=== PATIENT | female | born 1990 | race Caucasian/White ===

== ENCOUNTER → 2020-03-02 | Outpatient (CLI) | payer OTHER, MEDICAID ==
[2020-03-02 14:52] LABS: BASO % 0.6 % (0.0-1.0); EOS # 0.1 10^3/uL (0.0-0.5); EOS % 1.9 % (0.0-3.0); HEMATOCRIT 34.1 % (36.0-47.0); HEMOGLOBIN 11.5 g/dl (12.0-15.5); LYMPH # 2.2 10^3/uL (1.5-5.0); LYMPH % 41.7 % (24.0-44.0); MEAN CORPUSCULAR HEMOGLOBIN 29.6 pg (27.0-33.0); MEAN CORPUSCULAR HGB CONC 33.7 g/dl (32.0-36.5); MEAN CORPUSCULAR VOLUME 87.9 fl (80.0-96.0); MONO # 0.5 10^3/uL (0.0-0.8); MONO % 9.4 % (0.0-5.0); NEUTROPHILS # 2.4 10^3/uL (1.5-8.5); NEUTROPHILS % 46.2 % (36.0-66.0); PLATELET COUNT, AUTOMATED 247 10^3/uL (150-450); RED BLOOD COUNT 3.88 10^6/uL (4.00-5.40); WHITE BLOOD COUNT 5.2 10^3/uL (4.0-10.0)
[2020-03-02 14:57] LABS: APPEARANCE, URINE HAZY (CLEAR); BACTERIA, URINE AUTO NEGATIVE (NEGATIVE); BILIRUBIN, URINE AUTO NEGATIVE (NEGATIVE); BLOOD, URINE BLOOD NEGATIVE (NEGATIVE); COLOR, URINE YELLOW (YELLOW); GLUCOSE, URINE (UA) AUTO NEGATIVE (NEGATIVE); KETONE, URINE AUTO NEGATIVE (NEGATIVE); LEUKOCYTE ESTERASE, URINE AUTO NEGATIVE (NEGATIVE); MUCUS, URINE SMALL (NEGATIVE); NITRITE, URINE AUTO NEGATIVE (NEGATIVE); PROTEIN, URINE AUTO NEGATIVE (NEGATIVE); RBC, URINE AUTO 1 /HPF (0-3); SPECIFIC GRAVITY URINE AUTO 1.021 (1.002-1.035); SQUAMOUS EPITHELIAL CELL UR AU 3 /HPF (0-6); UROBILINOGEN, URINE AUTO 0.2 mg/dL (0.0-2.0); WBC, URINE AUTO 2 /HPF (0-3)
[2020-03-02 15:55] LABS: ALBUMIN 4.1 GM/DL (3.2-5.2); ALT/SGPT 250 U/L (12-78); BILIRUBIN,TOTAL 0.4 MG/DL (0.2-1.0); BLOOD UREA NITROGEN 20 MG/DL (7-18); CALCIUM LEVEL 9.6 MG/DL (8.5-10.1); CARBON DIOXIDE LEVEL 33 MEQ/L (21-32); CHLORIDE LEVEL 103 MEQ/L (98-107); CREATININE FOR GFR 0.69 MG/DL (0.55-1.30); GLOMERULAR FILTRATION RATE > 60.0 (>60); GLUCOSE, FASTING 95 MG/DL (70-100); HEPATITIS B SURFACE ANTIBODY POSITIVE (POSITIVE); HEPATITIS B SURFACE ANTIGEN NEGATIVE (NEGATIVE); POTASSIUM SERUM 4.1 MEQ/L (3.5-5.1); SODIUM LEVEL 138 MEQ/L (136-145); TOTAL PROTEIN 8.4 GM/DL (6.4-8.2)
[2020-03-05 03:07] LABS: HEPATITIS A IgG TOTAL Positive (Negative); HEPATITIS C QUANTITATION 43960 IU/mL (.); HEPATITIS C VIRUS GENOTYPE 3 (.)
== END ==
LOC: M LAB 14:08
PROVIDERS: ATTEND Physician Assistant Medical
DX: Z02.2 Encounter for examination for admission to residential institution (principal)

== ENCOUNTER 2020-03-15 13:15 | Outpatient (RCR) | payer OTHER | END 2020-03-16 | LOC: M PT 13:15 | PROVIDERS: ATTEND Physician Assistant Medical | DX: M25.572 Pain in left ankle and joints of left foot (principal) ==

== ENCOUNTER → 2020-03-23 | Outpatient (CLI) | payer OTHER ==
[2020-03-23 16:56] LABS: FREE THYROXINE INDEX 2.8 % (1.3-4.8); T UPTAKE 27 % (30-39); THYROXINE (T4) 10.2 UG/DL (4.5-12.0)
== END ==
LOC: M PLALAB 13:14
PROVIDERS: ATTEND Physician Assistant Medical
DX: R53.83 Other fatigue (principal)

== ENCOUNTER 2020-04-12 13:10 | Outpatient (RCR) | payer OTHER | END 2020-04-16 | LOC: M PT 13:10 | PROVIDERS: ATTEND Physician Assistant Medical | DX: Z51.89 Encounter for other specified aftercare (principal); M25.572 Pain in left ankle and joints of left foot ==

== ENCOUNTER 2020-04-29 11:15 | Outpatient (RCR) | payer OTHER | END 2020-05-16 | LOC: M PT 11:15 | PROVIDERS: ATTEND Physician Assistant Medical | DX: Z47.89 Encounter for other orthopedic aftercare (principal); M25.572 Pain in left ankle and joints of left foot ==

== ENCOUNTER 2020-05-19 13:45 | Outpatient (RCR) | payer OTHER ==
[2020-05-30] MEDS ORDERED: NICO2LOZ29 MT (13:36)
[2020-05-30] MEDS ORDERED: CLIN150C14 PO (13:36)
[2020-05-30] MEDS ORDERED: CETI10CA13 PO (13:36)
[2020-05-30] MEDS ORDERED: FLON1SPR NARES (13:36)
[2020-05-30] MEDS ORDERED: MULTTAB24 PO (13:36)
[2020-05-30] MEDS ORDERED: CLON-412 PO (13:36)
[2020-05-30] MEDS ORDERED: ZOLO50TA PO (13:36)
[2020-05-30] MEDS ORDERED: SUBO8MIS SL (13:36)
[2020-05-30] MEDS ORDERED: ATOM60CA7 PO (13:36)
== END 2020-06-16 ==
LOC: M PT 13:45
PROVIDERS: ATTEND Physician Assistant Medical
DX: M25.572 Pain in left ankle and joints of left foot (principal)

== ENCOUNTER 2020-06-03 09:26 | Day surgery (SDC) | payer OTHER ==
[~2020-06-03] VITALS: Ht 154.9 cm; Wt 55.8 kg
[~2020-06-03 09:26] MED LIST: ATOM60CA7 PO; CETI10CA13 PO; CLIN150C14 PO; CLON-412 PO; FLON1SPR NARES; LR 1,000 ML IV ONE; MULTTAB24 PO; NICO2LOZ29 MT; SUBO8MIS SL; ZOLO50TA PO
[2020-06-03] MEDS ORDERED: LIDOCAINE W/EPINEPHRINE 1% 20ML VIAL As Ordered ONE (11:30)
[2020-06-03] MEDS ORDERED: ONDANSETRON 4MG/2ML VIAL As Ordered ONE (12:05)
[2020-06-03] MEDS ORDERED: ROCURONIUM BROMIDE 50 MG/5 ML VIAL As Ordered ONE (12:05)
[2020-06-03] MEDS ORDERED: propofoL 200 MG/20 ML VIAL As Ordered ONE (12:05)
[2020-06-03] MEDS ORDERED: MIDAZOLAM INJ 2MG/2ML VIAL (J2250 PER 1MG) As Ordered ONE (12:05)
[2020-06-03] MEDS ORDERED: dexameTHASONE 4 MG/ML 1ML VIAL (J1100 PER 1MG) As Ordered ONE (12:05)
[2020-06-03] MEDS ORDERED: LIDOCAINE 2% 100MG/5ML SDV (FOR ANES.) As Ordered ONE (12:05)
[2020-06-03] MEDS ORDERED: fentaNYL 250 MCG/5 ML INJECTION (J3010) As Ordered ONE (12:05)
[2020-06-03] MEDS ORDERED: ACETAMINOPHEN 1000MG 100ML IV BTL (OFIRMEV) (J0131 PER 10MG) As Ordered ONE (12:15)
[2020-06-03] MEDS ORDERED: SUGAMMADEX SODIUM 500 MG/5 ML VIAL (BRIDION) As Ordered ONE (12:35)
[2020-06-03] MEDS ORDERED: LR 1,000 ML IV SCH (13:15)
[2020-06-03] MEDS ORDERED: oxyCODONE 5MG TAB PO PRN (13:15)
[2020-06-03] MEDS ORDERED: fentaNYL 100 MCG/2 ML INJECTION (J3010) IV PRN (13:15)
[2020-06-03] MEDS ORDERED: ONDANSETRON 4MG/2ML VIAL IV PRN (13:15)
[2020-06-03 13:46] VITALS: BP 114/76
--- NOTE | 2020-06-05 11:56 | RO ---
OPERATIVE NOTE DATE OF OPERATION: 06/03/2020 PREOPERATIVE DIAGNOSIS: Nonrestorable teeth. POSTOPERATIVE DIAGNOSIS: Nonrestorable teeth. PROCEDURE: Extraction of teeth #1, 2, 3, 4, 5, 6, 7, 8 , 9, 10, 11, 12 13, 14, 15, 16, 17, 19, 20, 21, 22, 23, 24, 25, 26, 27, 28, 29 and 30. SURGEON: Yann Chappell DMD ESTIMATED BLOOD LOSS: 10 mL ANESTHESIA: General. SPECIMENS: Teeth. The rest of the dictation will be completed on Quiet[facility]
== END 2020-06-03 14:40 | disposition home or self-care (01) ==
LOC: M SDC 09:26
PROVIDERS: ATTEND Dentist Oral and Maxillofacial Surgery
DX: K02.9 Dental caries, unspecified (principal); F43.10 Post-traumatic stress disorder, unspecified; F31.9 Bipolar disorder, unspecified; Z79.891 Long term (current) use of opiate analgesic; Z79.899 Other long term (current) drug therapy; F90.9 Attention-deficit hyperactivity disorder, unspecified type; F17.210 Nicotine dependence, cigarettes, uncomplicated
CPT/HCPCS: 88300; D7210; D9223; J0131; J1100; J2250; J2405; J3010

== ENCOUNTER → 2020-06-16 | Outpatient (CLI) | payer OTHER ==
[~2020-06-16] MED LIST changes: -LR 1,000 ML IV ONE
--- NOTE | 2020-06-16 10:26 | REP ---
INDICATION: HYPO COMPARISON: None. TECHNIQUE: PA and lateral. FINDINGS: The mediastinum and cardiac silhouette are normal. The lung yoder appear hyperinflated and without acute consolidation, effusion, or pneumothorax. The skeletal structures are intact and normal. IMPRESSION: No acute cardiopulmonary process. <Electronically signed by Srini Castellanos > 06/16/20 1021
== END ==
LOC: M RAD 09:54
PROVIDERS: ATTEND Physician Assistant Medical
DX: E03.9 Hypothyroidism, unspecified (principal)

== ENCOUNTER → 2020-08-19 | Outpatient (CLI) | payer OTHER ==
[~2020-08-19] MED LIST changes: -CLIN150C14 PO; +CLIN150C15 PO
[2020-08-19 13:45] LABS: APPEARANCE, URINE CLOUDY (CLEAR); BACTERIA, URINE AUTO 1+ (NEGATIVE); BILIRUBIN, URINE AUTO NEGATIVE (NEGATIVE); BLOOD, URINE BLOOD NEGATIVE (NEGATIVE); COLOR, URINE AMBER (YELLOW); GLUCOSE, URINE (UA) AUTO NEGATIVE (NEGATIVE); KETONE, URINE AUTO NEGATIVE (NEGATIVE); LEUKOCYTE ESTERASE, URINE AUTO NEGATIVE (NEGATIVE); MUCUS, URINE SMALL (NEGATIVE); NITRITE, URINE AUTO NEGATIVE (NEGATIVE); PROTEIN, URINE AUTO NEGATIVE (NEGATIVE); RBC, URINE AUTO 1 /HPF (0-3); SPECIFIC GRAVITY URINE AUTO 1.013 (1.002-1.035); SQUAMOUS EPITHELIAL CELL UR AU 38 /HPF (0-6); UROBILINOGEN, URINE AUTO 0.2 mg/dL (0.0-2.0); WBC, URINE AUTO 2 /HPF (0-3)
[2020-08-19 13:47] LABS: BASO % 0.6 % (0.0-1.0); EOS # 0.1 10^3/uL (0.0-0.5); EOS % 2.3 % (0.0-3.0); HEMATOCRIT 37.3 % (36.0-47.0); HEMOGLOBIN 12.4 g/dl (12.0-15.5); LYMPH # 2.2 10^3/uL (1.5-5.0); LYMPH % 36.2 % (24.0-44.0); MEAN CORPUSCULAR HGB CONC 33.2 g/dl (32.0-36.5); MEAN CORPUSCULAR VOLUME 87.1 fl (80.0-96.0); MONO # 0.5 10^3/uL (0.0-0.8); MONO % 8.3 % (2.0-8.0); NEUTROPHILS # 3.2 10^3/uL (1.5-8.5); NEUTROPHILS % 52.3 % (36.0-66.0); PLATELET COUNT, AUTOMATED 233 10^3/uL (150-450); RED BLOOD COUNT 4.28 10^6/uL (4.00-5.40); WHITE BLOOD COUNT 6.2 10^3/uL (4.0-10.0)
[2020-08-19 14:17] LABS: ALBUMIN 4.1 GM/DL (3.2-5.2); ALT/SGPT 105 U/L (12-78); BILIRUBIN,TOTAL 0.2 MG/DL (0.2-1.0); BLOOD UREA NITROGEN 16 MG/DL (7-18); CALCIUM LEVEL 9.4 MG/DL (8.5-10.1); CARBON DIOXIDE LEVEL 29 MEQ/L (21-32); CHLORIDE LEVEL 103 MEQ/L (98-107); CREATININE FOR GFR 0.71 MG/DL (0.55-1.30); GLOMERULAR FILTRATION RATE > 60.0 (>60); GLUCOSE, FASTING 107 MG/DL (70-100); POTASSIUM SERUM 3.9 MEQ/L (3.5-5.1); SODIUM LEVEL 138 MEQ/L (136-145); TOTAL PROTEIN 7.9 GM/DL (6.4-8.2)
[2020-08-19 14:31] LABS: HEPATITIS B SURFACE ANTIGEN NEGATIVE (NEGATIVE)
[2020-08-19 14:59] LABS: HEPATITIS B CORE ANTIBODY IGM NEGATIVE (NEGATIVE)
[2020-08-19 15:00] LABS: HEPATITIS A ANTIBODY IGM NEGATIVE (NEGATIVE)
[2020-08-19 15:07] LABS: HEPATITIS C VIRUS ABY INDEX > 11.0 INDEX (<0.8)
== END ==
LOC: M LAB 11:58
PROVIDERS: ATTEND Physician Assistant Medical
DX: Z02.2 Encounter for examination for admission to residential institution (principal)

== ENCOUNTER → 2020-08-26 | Outpatient (CLI) | payer OTHER ==
[2020-08-26 13:11] LABS: HEMATOCRIT 36.4 % (36.0-47.0); HEMOGLOBIN 12.5 g/dl (12.0-15.5); MEAN CORPUSCULAR HEMOGLOBIN 29.9 pg (27.0-33.0); MEAN CORPUSCULAR HGB CONC 34.3 g/dl (32.0-36.5); MEAN CORPUSCULAR VOLUME 87.1 fl (80.0-96.0); PLATELET COUNT, AUTOMATED 231 10^3/uL (150-450); RED BLOOD COUNT 4.18 10^6/uL (4.00-5.40)
--- NOTE | 2020-08-26 13:31 | ECGEPIP ---
[facility] Test Date: 2020-08-26 Pat Name: MAURICE WELSH Department: Room: - Gender: Female Account Liaison: [facility] : 1990 Requested By: Faraz Suárez Order Number: [id number] Reading MD: Elaina Castro Measurements Intervals [place] Rate: 62 P: 18 TN: 152 QRS: 73 QRSD: 82 T: 25 QT: 366 QTc: 371 Interpretive Statements Normal sinus rhythm Nonspecific T wave abnormality NO PRIOR Electronically Signed on 08-26-2020 13:31:12 EST by Elaina Castro
[2020-08-26 13:49] LABS: ALBUMIN 4.2 GM/DL (3.2-5.2); ALT/SGPT 93 U/L (12-78); BILIRUBIN,TOTAL 0.9 MG/DL (0.2-1.0); BLOOD UREA NITROGEN 16 MG/DL (7-18); CALCIUM LEVEL 9.4 MG/DL (8.5-10.1); CARBON DIOXIDE LEVEL 27 MEQ/L (21-32); CHLORIDE LEVEL 105 MEQ/L (98-107); CREATININE FOR GFR 0.75 MG/DL (0.55-1.30); GLOMERULAR FILTRATION RATE > 60.0 (>60); GLUCOSE, FASTING 81 MG/DL (70-100); POTASSIUM SERUM 3.9 MEQ/L (3.5-5.1); SODIUM LEVEL 134 MEQ/L (136-145)
[2020-08-26 14:25] LABS: WHITE BLOOD COUNT 6.1 10^3/uL (4.0-10.0)
[2020-08-26 18:36] LABS: HIV 1&2 SCREEN CENTAUR NEGATIVE (NEGATIVE)
[2020-08-26 18:37] LABS: HEPATITIS B SURFACE ANTIGEN NEGATIVE (NEGATIVE)
[2020-08-26 18:40] LABS: HEPATITIS C VIRUS ABY INDEX > 11.0 INDEX (<0.8)
[2020-08-26 18:53] LABS: HCG, SERUM QUALITATIVE NEGATIVE (NEGATIVE)
== END ==
LOC: M LAB 12:23
PROVIDERS: ATTEND Family Medicine
DX: F11.20 Opioid dependence, uncomplicated (principal)

== ENCOUNTER → 2020-08-29 | Outpatient (CLI) | payer OTHER ==
--- NOTE | 2020-08-30 14:38 | SLEEPHOME ---
DATE: 08/29/2020 ORDERED BY: LAZARA Adler Diagnostic home sleep testing was performed due to concern for the obstructive sleep apnea syndrome I this patient with sleep disturbance. For testing, a nocturnal T3 respiratory monitoring device was used. Continuous record was made of pulse, oxygen saturation, air flow, chest and abdominal strain, and body position. Nine hours and 59 minutes of data were reviewed. There were 3 hours and 53 minutes marked as time in bed. During the interval marked time in bed, there were 42 respiratory events identified of 10 seconds in duration or greater for a respiratory event index of 10.8. The events were both obstructive, mixed and central. Baseline pulse rate was 79. Pulse rate ranged 66 to 100. Baseline saturation was 96%. Saturations fell to 83%. Testing was performed in both the supine and nonsupine positions. IMPRESSION: Abnormal home sleep testing with repetitive respiratory events and oxygen desaturations to 83% with a respiratory event index of 10.8 is consistent with the obstructive sleep apnea syndrome. Given the frequency of central and mixed events, complex apnea should also be considered. In light of this, I would recommend referral of this patient for a formal sleep evaluation.
== END ==
LOC: M SLEEP HO 10:05
PROVIDERS: ATTEND Physician Assistant Medical
DX: F51.3 Sleepwalking [somnambulism] (principal); G47.9 Sleep disorder, unspecified

== ENCOUNTER → 2020-10-04 | Outpatient (REF) | payer OTHER ==
[2020-10-04 15:21] LABS: ALBUMIN 4.2 GM/DL (3.2-5.2); ALT/SGPT 44 U/L (12-78); BILIRUBIN,DIRECT < 0.1 MG/DL (0.0-0.2); BILIRUBIN,TOTAL 0.3 MG/DL (0.2-1.0); TOTAL PROTEIN 7.9 GM/DL (6.4-8.2)
[2020-10-06 14:12] LABS: HEPATITIS C QUANTITATION <15 IU/mL (.)
== END ==
LOC: M SFHCPLAZ 11:24
PROVIDERS: ATTEND Internal Medicine Infectious Disease
DX: B18.2 Chronic viral hepatitis C (principal)

== ENCOUNTER → 2020-11-09 | Outpatient (CLI) | payer OTHER ==
[2020-11-09 11:00] LABS: BASO % 0.7 % (0.0-1.0); EOS # 0.2 10^3/uL (0.0-0.5); EOS % 2.5 % (0.0-3.0); HEMATOCRIT 34.1 % (36.0-47.0); HEMOGLOBIN 11.6 g/dl (12.0-15.5); MEAN CORPUSCULAR HEMOGLOBIN 29.7 pg (27.0-33.0); MEAN CORPUSCULAR VOLUME 87.2 fl (80.0-96.0); MONO # 0.4 10^3/uL (0.0-0.8); MONO % 6.1 % (2.0-8.0); NEUTROPHILS # 3.5 10^3/uL (1.5-8.5); NEUTROPHILS % 57.4 % (36.0-66.0); PLATELET COUNT, AUTOMATED 276 10^3/uL (150-450); RED BLOOD COUNT 3.91 10^6/uL (4.00-5.40); WHITE BLOOD COUNT 6.1 10^3/uL (4.0-10.0)
[2020-11-09 12:18] LABS: ALBUMIN 3.9 GM/DL (3.2-5.2); ALT/SGPT 24 U/L (12-78); BILIRUBIN,DIRECT < 0.1 MG/DL (0.0-0.2); BILIRUBIN,TOTAL 0.2 MG/DL (0.2-1.0); BLOOD UREA NITROGEN 15 MG/DL (7-18); CREATININE FOR GFR 0.78 MG/DL (0.55-1.30); GLOMERULAR FILTRATION RATE > 60.0 (>60); IRON (FE) 96 UG/DL (50-170); PERCENT SATURATION 25.8 % (13.2-45.0); TOTAL IRON BINDING CAPACITY 372 UG/DL (250-450); TOTAL PROTEIN 7.7 GM/DL (6.4-8.2)
[2020-11-09 12:24] LABS: FOLATE > 24.0 NG/ML; VITAMIN B12 LEVEL 369 PG/ML
[2020-11-11 07:12] LABS: IGASUB2 94.9 mg/dL (73.2-301.2); IGASUB3 17.6 mg/dL (13.4-97.9)
== END ==
LOC: M LAB 09:48
PROVIDERS: ATTEND Internal Medicine Gastroenterology
DX: R14.0 Abdominal distension (gaseous) (principal)

== ENCOUNTER → 2020-11-14 | Outpatient (REF) | payer OTHER | LOC: M LAB REF 15:10 | PROVIDERS: ATTEND Internal Medicine Gastroenterology | DX: R10.0 Acute abdomen (principal) ==